=== PATIENT | female | born 1995 | race Caucasian/White ===

== ENCOUNTER 2017-06-13 15:16 | Emergency (ER) | payer OTHER ==
[2017-06-13 15:32] VITALS: BP 119/68; PULSE 83; RESP 16; TEMP 99.7
[2017-06-13] MEDS ORDERED: diphenhydrAMINE 50 MG CAP PO STA (15:53)
--- NOTE | 2017-06-13 15:56 | ED ---
Allergic Reaction HPI - General Chief complaint: Allergic Reaction Stated complaint: rash/itchy on forearms Time Seen by Provider: 06/13/17 15:47 Source: patient Mode of arrival: ambulatory Limitations: no limitations - History of Present Illness Initial Comments: 21-year-old female patient presents to emergency department today for evaluation of a rash to her bilateral hands and forearms. Patient states she was working with some sculpting material with her bare hands last night. State patient states she woke this morning and noticed a rash on her hands and forearms. Patient states that the rash is very itchy. She denies any drainage from the lesions. States that her face is also flushed. She denies any headache, neck pain, back pain, chest pain, shortness of breath, abdominal pain , nausea, or vomiting. She denies any difficulty swallowing, throat irritation , or difficulty breathing. Denies any wheezing. Patient doesn't have any known ALLERGIES. 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 She did not take anything to help symptoms prior to coming in. - Related Data Home Medications Medication Instructions Recorded Confirmed Cholecalciferol [Vitamin D3] 5,000 unit PO DAILY 06/13/17 06/13/17 Cyanocobalamin (Vitamin B-12) 1,000 mcg PO DAILY 06/13/17 06/13/17 [Vitamin B-12] Levothyroxine Sodium [Synthroid] 25 mcg PO DAILY 06/13/17 06/13/17 Previous Rx's Medication Instructions Recorded Hydrocortisone Cream 1 applic TOPICAL TID PRN #15 gm 06/13/17 [Hydrocortisone 1% Cream] diphenhydrAMINE [Benadryl] 25 - 50 mg PO QID PRN #20 capsule 06/13/17 Allergies Allergy/AdvReac Type Severity Reaction Status Date / Time No Known Allergies Allergy Verified 06/13/17 15:46 Review of Systems ROS Statement: Those systems with pertinent positive or pertinent negative responses have been documented in the HPI. ROS Other: All systems not noted in ROS Statement are negative. Past Medical History Past Medical History: No Reported History History of Any Multi-Drug Resistant Organisms: None Reported Past Surgical History: No Surgical Hx Reported Past Psychological History: Depression Smoking Status: Never smoker Past Alcohol Use History: None Reported Past Drug Use History: None Reported General Exam Limitations: no limitations General appearance: alert, in no apparent distress Head exam: Present: atraumatic, normocephalic, normal inspection Eye exam: Present: normal appearance, PERRL, EOMI. Absent: scleral icterus, conjunctival injection, periorbital swelling ENT exam: Present: normal exam, normal oropharynx, mucous membranes moist, TM's normal bilaterally Neck exam: Present: normal inspection. Absent: tenderness, meningismus, lymphadenopathy Respiratory exam: Present: normal lung sounds bilaterally. Absent: respiratory distress, wheezes, rales, rhonchi, stridor Cardiovascular Exam: Present: regular rate, normal rhythm, normal heart sounds. Absent: systolic murmur, diastolic murmur, rubs, gallop, clicks Extremities exam: Present: full ROM, normal capillary refill, other (Dorsal aspect of the bilateral hands and full forearm bilaterally exhibit maculopapular rash. No surrounding erythema. No drainage from lesions noted. Otherwise skin is pink, warm, and dry.). Absent: normal inspection, tenderness Back exam: Present: normal inspection Neurological exam: Present: alert, oriented X3, CN II-XII intact Psychiatric exam: Present: normal affect, normal mood Skin exam: Present: warm, dry, intact, normal color, rash (As noted in extremity exam.) Course Vital Signs 06/13/17 15:27 Temperature 99.7 F H Pulse Rate 83 Respiratory 16 Rate Blood Pressure 119/68 O2 Sat by Pulse 97 Oximetry Medical Decision Making - Medical Decision Making 21-year-old female patient presents to emergency department today for evaluation of rash to her bilateral forearms and hands. Patient was working with a new sculpting material last night so do believe this to be an ALLERGIC reaction. Patient will be given Benadryl here and given a prescription for Benadryl and hydrocortisone cream to apply for symptoms. Patient instructed about the primary care physician wanted to days for recheck. Patient instructed to return for any new, worsening, or concerning symptoms. Patient verbalizes understanding and agrees with this plan. Disposition Clinical Impression: Allergic reaction Disposition: HOME SELF-CARE Condition: Good Instructions: Urticaria (ED) Additional Instructions: Take Benadryl every 6 hours as needed for symptom relief. Cool compresses to the rash. Apply hydrocortisone cream [id number]. Follow-up with primary care physician for recheck in 1-2 days. Return immediately for any new, worsening, or concerning symptoms. Prescriptions: diphenhydrAMINE [Benadryl] 25 - 50 mg PO QID PRN #20 capsule PRN Reason: Itching Hydrocortisone Cream [Hydrocortisone 1% Cream] 1 applic TOPICAL TID PRN #15 gm PRN Reason: Itching Referrals: Nonstaff,Physician [Primary Care Provider] - 1-2 days Time of Disposition: 15:56
== END 2017-06-13 16:10 | disposition home or self-care (01) ==
LOC: EC 15:16
DX: T78.40XA Allergy, unspecified, initial encounter (principal); Z79.899 Other long term (current) drug therapy
CPT/HCPCS: 99283

== ENCOUNTER 2018-01-16 16:59 | Emergency (ER) | payer OTHER ==
[2018-01-16 17:03] VITALS: BP 134/63; PULSE 90; RESP 20; TEMP 98.5
[2018-01-16] MEDS ORDERED: TOPICAL SKIN ADHESIVE 1 EACH AMP TOPICAL ONE (17:18)
--- NOTE | 2018-01-16 17:20 | ED ---
Wound/Laceration HPI - General Chief Complaint: Wound/Laceration Stated Complaint: Finger Lac Time Seen by Provider: 01/16/18 17:15 Source: patient Mode of arrival: ambulatory Limitations: no limitations - History of Present Illness Initial Comments: 22-year-old female patient presents to the emergency department today for evaluation of a laceration to the left index finger. Patient states that she was cutting a zip tie from a cord when she slipped with the scissors and cut the tip of her finger. Parent states that she is having difficulty getting the bleeding to stop initially however the bleeding is now under control. Patient denies any numbness or tingling to the finger. Denies any difficulty with range of motion. She believes she has received a tetanus vaccine in the last 5 years. She denies any other injuries. Denies any history of coagulation disorders or use of anticoagulants. Patient denies any headache, neck pain, back pain, chest pain, shortness of breath, dizziness, weakness, abdominal pain , nausea, vomiting, or difficulties with bowel movements or urination. - Related Data Home Medications Medication Instructions Recorded Confirmed Cholecalciferol [Vitamin D3] 5,000 unit PO DAILY 06/13/17 06/13/17 Cyanocobalamin (Vitamin B-12) 1,000 mcg PO DAILY 06/13/17 06/13/17 [Vitamin B-12] Levothyroxine Sodium [Synthroid] 25 mcg PO DAILY 06/13/17 06/13/17 Previous Rx's Medication Instructions Recorded Hydrocortisone Cream 1 applic TOPICAL TID PRN #15 gm 06/13/17 [Hydrocortisone 1% Cream] diphenhydrAMINE [Benadryl] 25 - 50 mg PO QID PRN #20 capsule 06/13/17 Allergies Allergy/AdvReac Type Severity Reaction Status Date / Time No Known Allergies Allergy Verified 06/13/17 15:46 Review of Systems ROS Statement: Those systems with pertinent positive or pertinent negative responses have been documented in the HPI. ROS Other: All systems not noted in ROS Statement are negative. Past Medical History Past Medical History: No Reported History History of Any Multi-Drug Resistant Organisms: None Reported Past Surgical History: No Surgical Hx Reported Past Psychological History: Depression Smoking Status: Never smoker Past Alcohol Use History: None Reported Past Drug Use History: None Reported General Exam Limitations: no limitations General appearance: alert, in no apparent distress, other (This is a well- developed, well-nourished adult female patient in no acute distress. Vital signs upon presentation are temperature 98.5F, pulse 90, respirations 20, blood pressure 134/63, pulse ox 98% on room air.) Eye exam: Present: normal appearance, PERRL, EOMI. Absent: scleral icterus, conjunctival injection, periorbital swelling Respiratory exam: Present: normal lung sounds bilaterally. Absent: respiratory distress, wheezes, rales, rhonchi, stridor Cardiovascular Exam: Present: regular rate, normal rhythm, normal heart sounds. Absent: systolic murmur, diastolic murmur, rubs, gallop, clicks Extremities exam: Present: full ROM, normal capillary refill, other (There is a 1 cm flap-like laceration to the distal tip of the left index finger. Bleeding is currently under control. Remainder of the skin is pink, warm, and dry. Cap refills less than 3 seconds. Radial pulses 2+ and equal bilaterally.). Absent : tenderness, pedal edema, joint swelling, calf tenderness Neurological exam: Present: alert, oriented X3, CN II-XII intact Psychiatric exam: Present: normal affect, normal mood Skin exam: Present: warm, dry, intact, normal color. Absent: rash Course Vital Signs 01/16/18 17:00 Temperature 98.5 F Pulse Rate 90 Respiratory 20 Rate Blood Pressure 134/63 O2 Sat by Pulse 98 Oximetry Procedures - Laceration Laceration #1 Time Out Performed: Yes Indication: laceration Site: hand (Distal tip left index finger) Size (cm): 1 Depth: simple, single layer Type of Sutures: other (Dermabond) Patient Tolerated Procedure: well, no complications Medical Decision Making - Medical Decision Making 30-year-old female patient presents to the emergency department today for evaluation of a laceration to the distal tip of the left index finger. This was a 1 cm flap-like laceration. This was repaired with Dermabond. Neurovascular status was intact. She was educated regarding wound care. She is instructed to follow-up with her primary care physician for recheck in 1-2 days. She is instructed to return here immediately for any new, worsening, or concerning symptoms. Disposition Clinical Impression: Finger laceration Disposition: HOME SELF-CARE Condition: Good Instructions: Finger Laceration (ED), Skin Adhesive Care (ED) Additional Instructions: Do not pick or pull at group. Monitor for signs or symptoms of infection including redness, swelling, drainage, fever, or chills. Follow-up with your primary care physician for recheck in 1-2 days. Return here immediately for any new, worsening, or concerning symptoms. Referrals: Bonnie Velazquez MD [Primary Care Provider] - 1-2 days Time of Disposition: 17:36
== END 2018-01-16 17:39 | disposition home or self-care (01) ==
LOC: EC 16:59
DX: S61.211A Laceration without foreign body of left index finger without damage to nail, initial encounter (principal); Z79.899 Other long term (current) drug therapy; W45.8XXA Other foreign body or object entering through skin, initial encounter; Y92.009 Unspecified place in unspecified non-institutional (private) residence as the place of occurrence of the external cause
CPT/HCPCS: 12001; 99282

== ENCOUNTER → 2019-01-06 | Outpatient (CLI) | payer OTHER ==
--- NOTE | 2019-01-06 10:28 | USB ---
Reason for exam: clinical finding. History: Family history of breast cancer in maternal aunt. Physical Findings: Nurse Summary: lump left breast 2 weeks, 2cm palpable (nurse kp). US Breast LT Left complete breast ultrasound includes all four quadrants, the retroareolar region and axilla. Finding demonstrates a 1.9 x 1.9 x 2.5cm irregular, solid, hypoechoic lesion at 6 o'clock. Multiple lymph nodes visualized in axilla. These results were verbally communicated with the patient and result sheet given to the patient on 01/06/19. ASSESSMENT: Suspicious, BI-RAD 4 RECOMMENDATION: Ultrasound core biopsy of the left breast. Called Dr. Alatorre with mammographic findings and has scheduled an appointment for the patient for 02/18/19 at 10:[address] Plummer. Biopsy scheduled for 01/29/19. PRELIMINARY REPORT CALLED AND FAXED TO DR. PLUMMER ON 01/06/19.
== END ==
LOC: RADUSWWP 08:42
PROVIDERS: ATTEND Internal Medicine
DX: N64.9 Disorder of breast, unspecified (principal)

== ENCOUNTER → 2019-01-29 | Day surgery (SDC) | payer OTHER ==
[2019-01-29 10:53] VITALS: RESP 16; BMI 25.4
--- NOTE | 2019-01-29 12:49 | USB ---
EXAMINATION TYPE: US biopsy breast VAD LT DATE OF EXAM: 01/29/2019 CLINICAL HISTORY: N63 LUMP. Left breast palpable abnormality with abnormal prior ultrasound TECHNIQUE: Ultrasound guided core biopsy of left breast. COMPARISON: 01/06/2019 FINDINGS: The procedure of ultrasound guided core biopsy was explained to the patient. Benefits, alternatives, and risks were discussed. An informed consent was then obtained. Preprocedural timeout was performed. The patient was placed in supine positioning for imaging and for the procedure. The overlying skin was prepped and draped in usual sterile fashion. 10 cc of lidocaine buffered with bicarbonate was used as anesthetic into the skin and subcutaneous tissue up to a 1.9 x 1.9 x 2.5 cm irregular mass at the 6:00 position within the left breast. Under ultrasound guidance, a 12-gauge vacuum assisted biopsy gun device was used to obtain 4 core samples. A biopsy marker was not placed within this mass as it is readily sonographically visible. The patient tolerated the procedure well without any immediate complication. The patient was kept in the radiology department for short stay after the procedure and then discharged home in stable condition. Postprocedural mammogram demonstrates marker placement at the focal asymmetry seen on the mammogram of 01/26/2019. IMPRESSION: Successful, uncomplicated ultrasound guided core biopsy of a probable fibroadenoma 1.9 x 1.9 x 2.5 cm irregular mass at the 6:00 position within the left breast., full pathology results to follow. Pathology Results: Benign LEFT BREAST, NEEDLE CORE BIOPSIES: Fibroadenoma. Recommendation No follow up needed. MALINI
[2019-01-29 13:14] VITALS: BP 108/71; PULSE 65; TEMP 98
== END ==
LOC: RADUSWWP 10:21
PROVIDERS: ATTEND Surgery
DX: D24.2 Benign neoplasm of left breast (principal)
CPT/HCPCS: 19083; J2001; 88305

== ENCOUNTER → 2019-10-12 | Outpatient (CLI) | payer OTHER ==
--- NOTE | 2019-10-12 16:46 | XR ---
Left foot HISTORY: Left fourth toe pain, trauma 3 views the left foot There is an oblique mid to distal diaphyseal proximal fourth phalangeal fracture with minimal displac ement, small comminuted fragment is present medially. No dislocation. There is associated soft tissue swelling. IMPRESSION: Fourth digit fracture.
== END | disposition home or self-care (01) ==
LOC: RADXRMAIN 11:50
PROVIDERS: ATTEND Internal Medicine
DX: S92.912A Unspecified fracture of left toe(s), initial encounter for closed fracture (principal)

== ENCOUNTER → 2020-06-06 | Outpatient (CLI) | payer OTHER ==
--- NOTE | 2020-06-06 19:00 | XR ---
EXAMINATION TYPE: XR hand complete RT DATE OF EXAM: 06/06/2020 CLINICAL HISTORY: Pain and swelling since punching injury one week ago. TECHNIQUE: Frontal, lateral and oblique images of the right hand are obtained. COMPARISON: None. FINDINGS: There is a significantly displaced obliquely oriented fracture of the fifth metacarpal dis deondre diaphysis, with marked ulnar and dorsal angulation of the fracture apex. There is mild shortening . Associated soft tissue swelling of the ulnar aspect of the hand. There is no dislocation evident in the right hand. The joint spaces in the right hand appear within normal limits. IMPRESSION: Significantly displaced and angulated fracture of the fifth metacarpal neck.
== END | disposition home or self-care (01) ==
LOC: RAD 16:37
PROVIDERS: ATTEND Internal Medicine
DX: S62.336A Displaced fracture of neck of fifth metacarpal bone, right hand, initial encounter for closed fracture (principal)

== ENCOUNTER 2020-06-09 07:56 | Emergency (ER) | payer OTHER ==
[2020-06-09 08:02] VITALS: BP 125/81; PULSE 72; RESP 19; TEMP 98.4
--- NOTE | 2020-06-09 08:13 | ED ---
Upper Extremity HPI - General Chief Complaint: Extremity Injury, Upper Stated Complaint: rt hand injury Time Seen by Provider: 06/09/20 08:03 Source: patient, RN notes reviewed Mode of arrival: ambulatory Limitations: no limitations - History of Present Illness Initial Comments: 24-year-old female presented emergency Department with chief complaint of right hand injury. This happened over a week ago. Patient had x-rays 3 days ago which showed evidence of a fracture. Patient states that she was not splinted follow-up with orthopedics. Patient was sent here by PCP for x-rays and follow- up with orthopedics. Patient denies any paresthesias. Patient is right-hand dominant. - Related Data Home Medications Medication Instructions Recorded Confirmed Oxybutynin ER [Ditropan Xl] 10 mg PO DAILY 01/26/19 01/29/19 Allergies Allergy/AdvReac Type Severity Reaction Status Date / Time No Known Allergies Allergy Verified 01/29/19 10:47 Review of Systems ROS Statement: Those systems with pertinent positive or pertinent negative responses have been documented in the HPI. ROS Other: All systems not noted in ROS Statement are negative. Past Medical History Past Medical History: No Reported History Additional Past Medical History / Comment(s): "bladder problems" per pt History of Any Multi-Drug Resistant Organisms: None Reported Past Surgical History: No Surgical Hx Reported Past Anesthesia/Blood Transfusion Reactions: No Reported Reaction Past Psychological History: Anxiety, Depression Smoking Status: Never smoker Past Alcohol Use History: None Reported Past Drug Use History: None Reported General Exam Limitations: no limitations General appearance: alert, in no apparent distress Head exam: Present: atraumatic, normocephalic, normal inspection Respiratory exam: Present: normal lung sounds bilaterally. Absent: respiratory distress, wheezes, rales, rhonchi, stridor Cardiovascular Exam: Present: regular rate, normal rhythm, normal heart sounds. Absent: systolic murmur, diastolic murmur, rubs, gallop, clicks Extremities exam: Present: other (Right hand there is deformity noted over the fourth and fifth metacarpal region, neurovascular intact full range of motion no open wounds or sores) Course Vital Signs 06/09/20 07:59 Temperature 98.4 F Pulse Rate 72 Respiratory 19 Rate Blood Pressure 125/81 O2 Sat by Pulse 100 Oximetry Procedures - Orthopedic Splinting/Casting Injury #1 Side: right Upper Extremity Injury Location: short arm, hand Upper Extremity Immobilizer: ulnar gutter, synthetic pre-padded splint Medical Decision Making - Medical Decision Making Patient was splinted, will follow-up with orthopedics. Patient provided phone number for orthopedics associate. Patient was given a copy of her x-rays. Return parameters were discussed. Disposition Clinical Impression: Disp fx of neck of right fifth metacarpal bone with routine healing Disposition: HOME SELF-CARE Condition: Stable Instructions (If sedation given, give patient instructions): Hand Fracture (ED) Additional Instructions: Please return to the Emergency Department if symptoms worsen or any other concerns. Is patient prescribed a controlled substance at d/c from ED?: No Referrals: Chelsy Gomez MD [Primary Care Provider] - 1-2 days Mauricio Odom DO [Doctor of Osteopathic Medicine] - 1-2 days Time of Disposition: 08:13
== END 2020-06-09 08:35 | disposition home or self-care (01) ==
LOC: EC 07:56
DX: S62.336A Displaced fracture of neck of fifth metacarpal bone, right hand, initial encounter for closed fracture (principal); N32.9 Bladder disorder, unspecified; Z79.899 Other long term (current) drug therapy; W22.03XA Walked into furniture, initial encounter; Y93.89 Activity, other specified
CPT/HCPCS: 29125; 99283

== ENCOUNTER 2020-06-13 07:02 | Day surgery (SDC) | payer OTHER ==
[2020-06-09 16:11] VITALS: BMI 32.1
[~2020-06-13 07:02] MED LIST: DEXAMETHASONE SOD PHOSPHATE 10 MG/ML 1 ML VIAL IV ONE; HYDROmorphone 0.5 MG/0.5 ML SYRINGE IVP PRN; LACTATED RINGERS 1,000 ML IV SCH; LIDOCAINE 1% (10MG/ML) FOR IV START INTRADERMA PRN
[2020-06-13] MEDS ORDERED: LACTATED RINGERS 1,000 ML IV ONE ×2 (07:32→10:54)
[2020-06-13 07:39] VITALS: TEMP 98.2
[2020-06-13] MEDS ORDERED: ONDANSETRON 4 MG/2 ML VIAL ONE (07:54)
[2020-06-13] MEDS ORDERED: MIDAZOLAM 2 MG/2 ML VIAL IV ONE (08:41)
[2020-06-13] MEDS ORDERED: SODIUM BICARB 8.4% 10 ML VIAL (1 MEQ/ML) ONE (08:48)
[2020-06-13] MEDS ORDERED: LIDOCAINE 2% (PF) 20 MG/ML 5 ML VIAL ONE (08:49)
[2020-06-13] MEDS ORDERED: PROPOFOL 10 MG/ML 20 ML VIAL IV ONE (09:01)
[2020-06-13] MEDS ORDERED: MIDAZOLAM 2 MG/2 ML VIAL ONE (09:01)
[2020-06-13] MEDS ORDERED: fentaNYL (PF) 50 MCG/ML 2 ML AMP ONE (09:01)
--- NOTE | 2020-06-13 11:12 | FL ---
EXAMINATION TYPE: FL guidance operating room, XR hand complete RT DATE OF EXAM: 06/13/2020 CLINICAL HISTORY: Fifth finger fracture. TECHNIQUE: Fluoroscopy. Complete 3 views right hand intraoperatively. COMPARISON: Right hand x-ray one week ago. FINDINGS: Fluoroscopic guidance was provided during open reduction internal fixation procedure perfo rmed by Dr. Beltran. A total of 85 seconds of fluoroscopic time was utilized during the procedure and 7 spot intraoperative images are acquired. Images acquired show placement of intramedullary nail with 2 distal external K wires through comminut ed displaced fracture fifth distal diaphysis. There is improved alignment after reduction and fixatio n on intraoperative images obtained. IMPRESSION: As Above.
[2020-06-13] MEDS ORDERED: HYDROmorphone 0.5 MG/0.5 ML SYRINGE IVP STA (11:41)
[2020-06-13] MEDS ORDERED: HYDROmorphone 0.5 MG/0.5 ML SYRINGE IVP ONE (11:49)
[2020-06-13 12:23] VITALS: BP 122/73; PULSE 71; RESP 16
--- NOTE | 2020-06-18 16:05 | P.OP ---
Date of Procedure: 06/13/20 Preoperative Diagnosis: Displaced right fifth metacarpal neck fracture Postoperative Diagnosis: Displaced right fifth metacarpal neck fracture Procedure(s) Performed: Open reduction and internal fixation of right fifth metacarpal neck fracture Implants: Synthes headless compression screw, 2.5 mm x 40 mm (long thread); Two 0.054 K wires Anesthesia: MAC, local Surgeon: Vipin Beltran Estimated Blood Loss (ml): 4 Condition: stable Disposition: same day Indications for Procedure: The patient is 24-year-old female who sustained a displaced 5th metacarpal neck fracture after a punching injury. Treatment options (and associated risks and benefits) were discussed in the office; the patient elected to undergo surgical stabilization. In preop, additional questions were addressed and the patient wished to proceed with surgery. Consent forms were signed. The operative site was confirmed and marked in preop. Description of Procedure: After consent was obtained, local anesthetic with epinephrine was injected around the planned incision and surgical field in preop using aseptic technique. After an appropriate interval of time, the patient was brought to the OR and positioned supine with the right arm on an arm board. Anesthesia and prophyl actic IV antibiotics were administered uneventfully. The right upper extremity was then prepped and draped in standard, sterile fashion. A time-out was performed, confirming patient identifiers, the operative side, the site and the procedure to be performed: all team members expressed agreement. The fracture was assessed with intraoperative fluoroscopy, demonstrating an angulated fracture at the fifth metacarpal neck/shaft junction. Callous formation was noted on imaging. A manual closed reduction was attempted but displacement persisted. The decision was made to proceed with open reduction. Loupe magnification was utilized throughout the case for optimum visualization. A longitudinal incision was marked dorsally between the distal 4th and 5th metacarpal shafts. The skin was sharply incised and the subcutaneous tissues were bluntly spread. Superficial sensory nerves were mobilized and protected. The extensor tendons were mobilized and the fracture site was identified. There was prominent callous and immature bone within the fracture site, extending along the radial aspect of the neck. At this point, the limb was exsanguinated with an Esmarch and the tourniquet was inflated. The fracture site was debrided with curettes and rongeurs. Mild metaphyseal comminution of the neck was noted. Once adequately debrided, the fracture was reduced and alignment was confirmed on imaging. A small longitudinal incision was marked over the 5th metacarpal head. The skin was sharply incised and the subcutaneous tissues were bluntly spread. Based on preoperative templating, the guidewire for the chosen cannulated screw was selected. The extensor tendon was gently mobilized and protected while the wire was inserted. The starting was confirmed on orthogonal imaging. With the fracture held reduced, the wire was inserted into the dorsal third of the metacarpal head and advanced retrograde down the medullary canal and across the fracture site. Position was confirmed on orthogonal views. The cannulated drill was inserted by hand and advanced past the fracture site and into the isthmus. Holding the fracture reduced and controlling rotation, the screw was inserted over the guidewire. The screw was advanced until the head was completely recessed below the articular surface. The guidewire was removed. The fracture was then stressed under live fluoroscopy: some coronal plane laxity and motion at the fracture site was noted. Two 0.054 K wires were inserted percutaneously into the distal fragment of the 5th metacarpal and advanced transversely into the neck of the 4th metacarpal for adjunct stability. Repeat stress testing demonstrated excellent stability of the fixation construct. Fracture reduction and implant position were assessed on imaging: some residual stepoff and mild angulation was noted on the lateral view. However, the small finger showed no clinical malalignment at rest and completely flexed passively into a full composite fist without rotation, overlap or angular deformity. No further treatment was deemed necessary. Final x-rays were obtained. The tourniquet was released after 49 minutes at 150 mmHg. Good hemostasis was obtained with manual pressure. The wound was thoroughly irrigated with normal saline. The incisions were closed with interrupted 5-0 Nylon sutures. A soft, sterile dressing was applied, followed by a resting plaster ulnar gutter splint with the MCP joints free. All sponge, needle and instrument counts were correct at the end of the case. The patient tolerated the procedure well and was transferred to recovery in stable condition.
== END 2020-06-13 12:36 | disposition home or self-care (01) ==
LOC: OR 07:02
PROVIDERS: ATTEND Orthopaedic Surgery
DX: S62.336A Displaced fracture of neck of fifth metacarpal bone, right hand, initial encounter for closed fracture (principal); E03.9 Hypothyroidism, unspecified; F32.9 Major depressive disorder, single episode, unspecified; K08.89 Other specified disorders of teeth and supporting structures; Z79.890 Hormone replacement therapy; Z97.3 Presence of spectacles and contact lenses; Z87.891 Personal history of nicotine dependence; Z83.3 Family history of diabetes mellitus; W22.09XA Striking against other stationary object, initial encounter
CPT/HCPCS: 81025; 73130; 26615; C1713; J2250; J1100; J0690; J2405; J3010; J2704; J1170

== ENCOUNTER 2021-01-10 11:13 | Emergency (ER) | payer OTHER ==
[2021-01-10 11:39] VITALS: BP 110/73; PULSE 64; RESP 18; TEMP 98.2
[2021-01-10] MEDS ORDERED: diphenhydrAMINE 50 MG CAP PO STA (13:18)
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
[2021-01-10] MEDS ORDERED: diphenhydrAMINE 25 MG CAP PO STA (13:22)
== END 2021-01-10 13:40 | disposition home or self-care (01) ==
LOC: EC 11:13
DX: T23.201A Burn of second degree of right hand, unspecified site, initial encounter (principal); T31.0 Burns involving less than 10% of body surface; E07.9 Disorder of thyroid, unspecified; Z79.890 Hormone replacement therapy
CPT/HCPCS: 99283

== ENCOUNTER → 2021-11-09 | Outpatient (CLI) | payer OTHER ==
--- NOTE | 2021-11-12 10:44 | MM ---
Reason for exam: clinical finding. Baseline mammogram. History: Patient is nulliparous. Family history of breast cancer in paternal aunt. Benign US biopsy breast VAD LT of the left breast, January 29, 2019. Indicated problem(s): lump or thickening and pain in the left breast. Physical Findings: Nurse Summary: 2cm nodule in the left breast at 6 o'clock and a 0.5cm nodule in the left breast at 9 o'clock (nurse mj). [facility] Diagnostic Mammo LT w CAD CC and MLO view(s) were taken of the left breast. There are scattered fibroglandular densities. Finding: There is a typically benign 29 x 20 mm high density, circumscribed lobulated mass in the lower outer quadrant, middle position of the left breast. There is no discrete abnormality including area of concern at 9 o'clock. These results were verbally communicated with the patient and result sheet given to the patient on 11/09/21. ASSESSMENT: Benign, BI-RAD 2 RECOMMENDATION: Routine screening mammogram of both breasts at age 42. Manage patient on a clinical basis.
--- NOTE | 2021-11-12 10:46 | USB ---
Reason for exam: clinical finding. History: Patient is nulliparous. Family history of breast cancer in paternal aunt. Benign US biopsy breast VAD LT of the left breast, January 29, 2019. US Breast LT Left complete breast ultrasound includes all four quadrants, the retroareolar region and axilla. Finding demonstrates a 2.0 x 1.9 x 1.2cm solid, hypoechoic lesion at 6 o'clock, known fibroadenoma, previous measurement 2.4 x 2.4 x 1.3cm. 9 o'clock position negative. These results were verbally communicated with the patient and result sheet given to the patient on 11/09/21. ASSESSMENT: Incomplete: need additional imaging evaluation, BI-RAD 0 RECOMMENDATION: Special view mammogram of the left breast.
== END | disposition home or self-care (01) ==
LOC: RADMAMWWP 06:55
PROVIDERS: ATTEND Internal Medicine
DX: R92.8 Other abnormal and inconclusive findings on diagnostic imaging of breast (principal); N63.0 Unspecified lump in unspecified breast; N64.4 Mastodynia
CPT/HCPCS: 77065

== ENCOUNTER → 2022-02-11 | Outpatient (CLI) | payer OTHER ==
--- NOTE | 2022-02-11 07:50 | US ---
EXAMINATION TYPE: US abdomen complete DATE OF EXAM: 02/11/2022 COMPARISON: NONE CLINICAL HISTORY: N39.3 Stress incontinence. Patient states she had bladder issues and doctor wanted to check everything. EXAM MEASUREMENTS: Liver Length: 16.1 cm Gallbladder Wall: 0.2 cm CBD: 0.3 cm Spleen: 9.1 cm Right Kidney: 9.4 x 4.1 x 4.4 cm Left Kidney: 9.4 x 4.4 x 4.5 cm Limited due to patient body habitus and overlying bowel gas Pancreas: Tail obscured by overlying bowel gas Liver: Limited visualization, scanned through ribs. No prominent masses or lesions seen. Gallbladder: wnl Evidence for sonographic Elena's sign: neg CBD: wnl Spleen: wnl Right Kidney: Lower pole obscured by overlying bowel gas Left Kidney: No hydronephrosis or masses seen Upper IVC: wnl Abd Aorta: No AAA visualized The liver is homogenous. The intrahepatic portion of the IVC and proximal abdominal aorta are within normal limits. There is no evidence of cholelithiasis. Common bile duct is unremarkable. The visu alized portions of the pancreas are homogenous. The spleen is unremarkable. Kidneys are symmetric a nd free of hydronephrosis. No renal lesions are seen. IMPRESSION: No significant abnormality seen.
== END | disposition home or self-care (01) ==
LOC: RADUSWWP 06:46
PROVIDERS: ATTEND Family Medicine
DX: N39.3 Stress incontinence (female) (male) (principal)
CPT/HCPCS: 76700

== ENCOUNTER 2022-06-10 14:51 | Emergency (ER) | payer OTHER ==
[2022-06-10 15:22] VITALS: BP 129/80; PULSE 75; RESP 16; TEMP 98.1
[2022-06-10] MEDS ORDERED: SODIUM CHLORIDE 0.9% 1,000 ML IV STA (15:42)
[2022-06-10] MEDS ORDERED: KETOROLAC 15 MG/ML 1 ML VIAL IVP STA (15:42)
--- NOTE | 2022-06-10 17:18 | ED ---
Skin/Abscess/FB HPI - General Chief complaint: Skin/Abscess/Foreign Body Stated complaint: lower lt leg wound Time Seen by Provider: 06/10/22 15:24 Source: patient, family, RN notes reviewed Mode of arrival: ambulatory Limitations: no limitations - History of Present Illness Initial comments: This is a 26-year-old female (goes by "he") who presents to the emergency department for a right leg infection. Patient states that he got a new cat approximately one month ago. The cat has repeatedly scratched him on the right leg, most recently 3 days ago. He now has multiple open wounds to the right leg that have started to ooze and drain. States that this is more so itchy than painful. Denies any fevers, chills, nausea, vomiting, or feeling generally ill. Also states that he had another cat bite him on the right index finger yesterday. Currently denying any pain to this area. Denies any fevers, chills, sore throat, cough, dyspnea, chest pain, palpitations, abdominal pain, nausea, vomiting, diarrhea, back pain, or headaches. MD complaint: other (cat scratch and bite) Location: [facility] Treatments Prior to Arrival: bandages - Related Data Home Medications Medication Instructions Recorded Confirmed Levothyroxine Sodium [Synthroid] 25 mcg PO DAILY 06/09/20 06/13/20 Previous Rx's Medication Instructions Recorded Cephalexin [Keflex] 500 mg PO Q8H 5 Days #7 cap 06/13/20 Cephalexin [Keflex] 500 mg PO Q6HR #20 cap 01/10/21 diphenhydrAMINE [Benadryl] 25 mg PO TID PRN #30 capsule 01/10/21 Cephalexin [Keflex] 500 mg PO Q6HR 7 Days #28 cap 06/10/22 Mupirocin 2% Oint [Bactroban 2% 1 applic TOPICAL TID #22 gm 06/10/22 Oint] Sulfamethox-Tmp 800-160Mg [Bactrim 1 tab PO Q12HR 7 Days #14 tab 06/10/22 DS 800-160 mg] Allergies Allergy/AdvReac Type Severity Reaction Status Date / Time No Known Allergies Allergy Verified 06/10/22 15:22 Review of Systems ROS Statement: Those systems with pertinent positive or pertinent negative responses have been documented in the HPI. ROS Other: All systems not noted in ROS Statement are negative. Past Medical History Past Medical History: Thyroid Disorder Additional Past Medical History / Comment(s): fracture 5th metacarpal right hand History of Any Multi-Drug Resistant Organisms: None Reported Past Surgical History: Orthopedic Surgery Additional Past Surgical History / Comment(s): hand surgery Past Anesthesia/Blood Transfusion Reactions: No Reported Reaction Past Psychological History: Anxiety, Depression Smoking Status: Never smoker Past Alcohol Use History: None Reported Past Drug Use History: None Reported General Exam Limitations: no limitations General appearance: alert, in no apparent distress Head exam: Present: atraumatic, normocephalic, normal inspection Respiratory exam: Present: normal lung sounds bilaterally. Absent: respiratory distress, wheezes, rales, rhonchi, stridor Cardiovascular Exam: Present: regular rate, normal rhythm, normal heart sounds. Absent: systolic murmur, diastolic murmur, rubs, gallop, clicks Neurological exam: Present: alert, oriented X3, CN II-XII intact Psychiatric exam: Present: normal affect, normal mood Skin exam: Present: other (Swelling, erythema, and tenderness starting just inferior to the right patella and terminating at the ankle. There is not exquisite tenderness when squeezing the calf. Multiple open wounds with active drainage. 3 puncture wounds to the left index finger consistent with a recent cat bite. ) Course Vital Signs 06/10/22 15:19 Temperature 98.1 F Pulse Rate 75 Respiratory 16 Rate Blood Pressure 129/80 O2 Sat by Pulse 100 Oximetry Medical Decision Making - Medical Decision Making This is a 26-year-old female (goes by "he") who presents to the emergency department for cat scratches to the right leg. Lab work did not reveal any evidence of leukocytosis. X-ray of the right lower extremity did not reveal any signs of subcutaneous gas formation. Dr. Miner evaluated the patient along with myself. Given that there is no exquisite tenderness or abnormalities on laboratory imaging, patient will be managed on outpatient antibiotics initially. Prescription for Bactrim and Keflex provided. First doses were administered in the emergency department, as his pharmacy is currently closed. The wound was also covered with mupirocin ointment and wrapped accordingly. Mupirocin ointment was prescribed as well. Advised the patient to apply this to the wound and to keep it covered. Also instructed him to elevate the leg. He is also advised to do what he can to keep his cat away from the leg to avoid any further injury. Strict return parameters discussed, in that if he develops fevers/chills, increased pain, increased redness, swelling, or drainage, he needs to return immediately for possible IV antibiotics. Wound and blood cultures were ordered. Advised [id number] ibuprofen and Tylenol as needed for pain relief. Return precautions reviewed in depth, the patient is instructed to return to the emergency department with any new, worsening, or concerning symptoms. Patient verbalized understanding. This case was discussed in detail with the attending ED physician. Presentation, findings, and treatment plan discussed in detail as well. - Lab Data Result diagrams: 06/10/22 17:30 06/10/22 17:30 Lab Results 06/10/22 06/10/22 06/10/22 Range/Units 17:30 17:30 17:30 WBC 7.8 (3.8-10.6) k/uL RBC 4.90 (3.80-5.40) m/uL Hgb 14.0 (11.4-16.0) gm/dL Hct 42.7 (34.0-46.0) % MCV 87.0 (80.0-100.0) fL MCH 28.5 (25.0-35.0) pg MCHC 32.8 (31.0-37.0) g/dL RDW 13.6 (11.5-15.5) % Plt Count 332 (150-450) k/uL MPV 7.1 Neutrophils % 54 % Lymphocytes % 28 % Monocytes % 7 % Eosinophils % 8 % Basophils % 1 % Neutrophils # 4.2 (1.3-7.7) k/uL Lymphocytes # 2.2 (1.0-4.8) k/uL Monocytes # 0.6 (0-1.0) k/uL Eosinophils # 0.6 (0-0.7) k/uL Basophils # 0.1 (0-0.2) k/uL Sodium 139 (137-145) mmol/L Potassium 3.6 (3.5-5.1) mmol/L Chloride 107 (98-107) mmol/L Carbon Dioxide 23 (22-30) mmol/L Anion Gap 9 mmol/L BUN 9 (7-17) mg/dL Creatinine 0.73 (0.52-1.04) mg/dL Est GFR (CKD-EPI)AfAm >90 (>60 ml/min/1.73 sqM) Est GFR (CKD-EPI)NonAf >90 (>60 ml/min/1.73 sqM) Glucose 81 (74-99) mg/dL Plasma Lactic Acid Maxwell 0.8 (0.7-2.0) mmol/L Calcium 8.9 (8.4-10.2) mg/dL Total Bilirubin 0.8 (0.2-1.3) mg/dL AST 30 (14-36) U/L ALT 38 H (4-34) U/L Alkaline Phosphatase 116 (38-126) U/L Total Protein 6.9 (6.3-8.2) g/dL Albumin 4.0 (3.5-5.0) g/dL - Radiology Data Radiology results: report reviewed, image reviewed Disposition Clinical Impression: Cat scratch of right lower leg, Cat bite of index finger Disposition: HOME SELF-CARE Instructions (If sedation given, give patient instructions): Animal Bite (ED), Cat Scratch Disease (ED) Additional Instructions: Return to the emergency department with any new, worsening, or concerning symptoms, especially if you develop fevers or worsening pain. Take both antibiotics as prescribed for 7 days. Keep the antibiotic ointment on the wound and keep the leg wrapped and covered. Also be sure to elevate the leg. Make sure you prevent your cat from causing any additional injuries or wounds to the area. Take ibuprofen and Tylenol as needed for pain. Prescriptions: Sulfamethox-Tmp 800-160Mg [Bactrim DS 800-160 mg] 1 tab PO Q12HR 7 Days #14 tab Mupirocin 2% Oint [Bactroban 2% Oint] 1 applic TOPICAL TID #22 gm Cephalexin [Keflex] 500 mg PO Q6HR 7 Days #28 cap Is patient prescribed a controlled substance at d/c from ED?: No Referrals: [facility] [Primary Care Provider] - 1-2 days
--- NOTE | 2022-06-10 17:22 | XR ---
EXAMINATION TYPE: XR tibia fibula RT DATE OF EXAM: 06/10/2022 4:10 PM INDICATION: Patient age:Female; 26 years old; Reason for study: Infection, pain, and swelling; . COMPARISON: None TECHNIQUE: The right tibia/fibula was examined in AP and lateral projections. FINDINGS: No evidence of any acute osseous pathology, joint dislocation, or soft tissue swelling is n oted. No evidence of osseous erosion or subcutaneous lucency. IMPRESSION: 1. No evidence of acute fracture. 2. No evidence for subcutaneous lucency to suggest subcutaneous gas.
[2022-06-10 17:41] LABS: Basophils # (A) 0.1 k/uL (0-0.2); Basophils % (A) 1 %; Eosinophils # (A) 0.6 k/uL (0-0.7); Eosinophils % (A) 8 %; HCT 42.7 % (34.0-46.0); Lymphocytes # (A) 2.2 k/uL (1.0-4.8); Lymphocytes % (A) 28 %; MCH 28.5 pg (25.0-35.0); MCHC 32.8 g/dL (31.0-37.0); Mean Platelet Volume 7.1; Monocytes # (A) 0.6 k/uL (0-1.0); Monocytes % (A) 7 %; Neutrophils # (A) 4.2 k/uL (1.3-7.7); Neutrophils % (A) 54 %; Platelet Count 332 k/uL (150-450); RDW 13.6 % (11.5-15.5); WBC 7.8 k/uL (3.8-10.6)
[2022-06-10 17:53] LABS: ALT 38 U/L (4-34); AST 30 U/L (14-36); African American GFR (CKD) >90 (>60 ml/min/1.73 sqM); Alkaline Phosphatase 116 U/L (38-126); Anion Gap 9 mmol/L; Blood Urea Nitrogen 9 mg/dL (7-17); Calcium 8.9 mg/dL (8.4-10.2); Carbon Dioxide 23 mmol/L (22-30); Chloride 107 mmol/L (98-107); Glucose 81 mg/dL (74-99); Non-African American GFR(CKD) >90 (>60 ml/min/1.73 sqM); Potassium 3.6 mmol/L (3.5-5.1); Sodium 139 mmol/L (137-145); Total Bilirubin 0.8 mg/dL (0.2-1.3); Total Protein 6.9 g/dL (6.3-8.2)
[2022-06-10] MEDS ORDERED: SULFAMETHOX-TMP 800-160MG 1 EACH TAB PO STA (17:58)
[2022-06-10] MEDS ORDERED: CEPHALEXIN 500 MG CAP PO STA (17:58)
[2022-06-10] MEDS ORDERED: MUPIROCIN 2% OINT 22 GM TUBE TOPICAL SCH (18:00)
== END 2022-06-10 18:23 | disposition home or self-care (01) ==
LOC: EC 14:51
DX: S80.811A Abrasion, right lower leg, initial encounter (principal); F32.A Depression, unspecified; F41.9 Anxiety disorder, unspecified; W55.01XA Bitten by cat, initial encounter
CPT/HCPCS: 99283; 96374; 96361; 36415; 80053; 83605; 85025; 87040; 87070; 87205; 73590; J1885

== ENCOUNTER → 2023-08-29 | Outpatient (CLI) | payer OTHER ==
[2023-08-29 17:35] LABS: ALT 37 U/L (8-44); AST 22 U/L (13-35); Albumin 4.2 d/dL (3.8-4.9); Alkaline Phosphatase 108 U/L (41-126); BUN/Creat Ratio 8.67 Ratio (12.00-20.00); Blood Urea Nitrogen 7.8 mg/dL (9.0-27.0); Carbon Dioxide 17.6 mmol/L (21.6-31.8); Chloride 98 mmol/L (96-109); Globulin 2.8 d/dL (1.6-3.3); Glucose 175 mg/dL (70-110); Potassium 4.4 mmol/L (3.5-5.5); Sodium 138 mmol/L (135-145); Total Bilirubin 0.8 mg/dL (0.3-1.2)
[2023-08-30 09:08] LABS: Microalbumin Creatinine Ratio <45 mg/g Cr (0-30); Urine Creatinine 26.5 mg/dL (28.0-217.0)
== END | disposition home or self-care (01) ==
LOC: LABWHC1 08:59
PROVIDERS: ATTEND Family Medicine
DX: E11.9 Type 2 diabetes mellitus without complications (principal); E78.2 Mixed hyperlipidemia; E03.9 Hypothyroidism, unspecified; E55.9 Vitamin D deficiency, unspecified
CPT/HCPCS: 36415; 80053; 82043; 82306; 82570; 84443

== ENCOUNTER → 2024-01-09 | Outpatient (CLI) | payer OTHER ==
[2024-01-09 18:40] LABS: Chol/HDL Ratio 6.13 Ratio; LDL Cholesterol,Calculated 76.3 mg/dL (0.0-131.0)
[2024-01-09 18:46] LABS: ALT 29 U/L (8-44); AST 23 U/L (13-35); Albumin 4.5 g/dL (3.8-4.9); Albumin/Globulin Ratio 1.55 Ratio (1.60-3.17); Alkaline Phosphatase 114 U/L (41-126); BUN/Creat Ratio 15.33 Ratio (12.00-20.00); Blood Urea Nitrogen 13.8 mg/dL (9.0-27.0); Calcium 9.8 mg/dL (8.7-10.3); Carbon Dioxide 25.4 mmol/L (21.6-31.8); Chloride 103 mmol/L (96-109); Globulin 2.9 g/dL (1.6-3.3); Glucose 132 mg/dL (70-110); Potassium 4.5 mmol/L (3.5-5.5); Sodium 139 mmol/L (135-145); Total Bilirubin 0.7 mg/dL (0.3-1.2); Total Protein 7.4 g/dL (6.2-8.2)
[2024-01-09 19:03] LABS: Microalbumin Creatinine Ratio <10 mg/g Cr (0-30)
== END | disposition home or self-care (01) ==
LOC: LABWHC1 09:20
PROVIDERS: ATTEND Family Medicine
DX: E11.9 Type 2 diabetes mellitus without complications (principal); E78.2 Mixed hyperlipidemia
CPT/HCPCS: 36415; 80053; 80061; 82043; 82570